=== PATIENT | male | born 1970 | race Caucasian/White ===

== ENCOUNTER 2017-04-20 14:49 | Emergency (ER) | payer BC ==
[~2017-04-20] VITALS: Ht 177.8 cm; Wt 103.6 kg
[~2017-04-20 14:49] MED LIST: LORTAB5 PO; NAPROSYN500 MG PO; NOVOLIN R U-1001 ML SC; NOVOLOG MIX SC; ZESTRIL40 MG PO
[2017-04-20 16:06] LABS: HEMATOCRIT 47.9 % (39.0-50.0); HEMOGLOBIN 16.4 g/dl (14.0-18.0); IMMATURE GRANULOCYTES 0.6 % (0.0-1.0); MEAN CORPUSCULAR HGB 29.4 pG CALC (26.0-32.0); MEAN CORPUSCULAR HGB CONC 34.2 g/L CALC (32.0-36.0); NEUT# 5.76 thou/uL (1.82-7.42); RED BLOOD COUNT 5.57 mill/uL (4.70-6.10); RED CELL DISTRI WIDTH 12.6 % (11.5-15.5)
[2017-04-20 16:17] LABS: ALBUMIN 4.6 g/dL (3.2-5.0); ALKALINE PHOSPHATASE 90 u/l (38-126); AMYLASE 58 u/l (30-110); ANION GAP 18 (6-22 (CALC)); BILIRUBIN, TOTAL 1.1 mg/dL (0.0-1.4); BUN 16 mg/dL (9-20); BUN/CREATININE RATIO 16 (12-20 (CALC)); CALCIUM 9.5 mg/dL (8.4-10.2); CARBON DIOXIDE 26 mmol/l (22-30); CHLORIDE 98 mmol/l (95-108); GFR > 60 ML/MIN (>=60 (CALC)); GFR FOR AFR.AMER. > 60 ML/MIN (>=60 (CALC)); GLUCOSE 325 mg/dL (75-110); LIPASE 40 u/l (23-300); POTASSIUM 4.3 mmol/l (3.5-5.1); SGOT/AST 34 u/l (17-59); SGPT/ALT 63 u/l (21-72); SODIUM 138 mmol/l (137-146)
[2017-04-20 16:29] LABS: MYOGLOBIN 163 ng/mL (0 - 121)
[2017-04-20 17:16] LABS: INFLUENZA A NONE DETECTED (NONE DETECT)
[2017-04-20 17:17] LABS: INFLUENZA B NONE DETECTED (NONE DETECT)
[2017-04-20] MEDS ORDERED: BACTRIM DS1 TAB PO (17:24)
[2017-04-20] MEDS ORDERED: ZOFRAN ODT4 MG PO (17:24)
[2017-04-20 17:31] VITALS: BP 156/83
== END 2017-04-20 17:49 | disposition home or self-care (01) | DRG 392 ==
LOC: ED 14:49
PROVIDERS: Emergency Medicine
DX: R10.33 Periumbilical pain (principal); B34.9 Viral infection, unspecified; R19.7 Diarrhea, unspecified; R11.10 Vomiting, unspecified; R50.9 Fever, unspecified

== ENCOUNTER 2018-02-06 07:35 | Emergency (ER) | payer OTHER, BC ==
[~2018-02-06] VITALS: Ht 177.8 cm; Wt 106.4 kg
[~2018-02-06 07:35] MED LIST changes: +BACTRIM DS1 TAB PO; +ZOFRAN ODT4 MG PO
[2018-02-06] MEDS ORDERED: ATORVASTATIN CA80 MG PO (07:52)
[2018-02-06] MEDS ORDERED: NAPROXEN250 MG PO (07:53)
[2018-02-06] MEDS ORDERED: LEXAPRO10 MG PO (07:53)
[2018-02-06] MEDS ORDERED: TYLENOL 500MG TAB PO (07:54)
[2018-02-06] MEDS ORDERED: TORADOL PO (08:36)
[2018-02-06] MEDS ORDERED: FLEXERIL PO (08:46)
[2018-02-06 08:56] VITALS: BP 169/105
== END 2018-02-06 08:56 | disposition home or self-care (01) | DRG 563 ==
LOC: ED 07:35
DX: S46.911A Strain of unspecified muscle, fascia and tendon at shoulder and upper arm level, right arm, initial encounter (principal); E11.9 Type 2 diabetes mellitus without complications; I10 Essential (primary) hypertension; F41.0 Panic disorder [episodic paroxysmal anxiety]; W17.89XA Other fall from one level to another, initial encounter; Y93.89 Activity, other specified; Y92.89 Other specified places as the place of occurrence of the external cause; Y99.0 Civilian activity done for income or pay

== ENCOUNTER 2020-01-20 19:19 | Emergency (ER) | payer BC ==
[~2020-01-20] VITALS: Ht 177.8 cm; Wt 111.4 kg
[~2020-01-20 19:19] MED LIST changes: +ATORVASTATIN CA80 MG PO; +FLEXERIL PO; +LEXAPRO10 MG PO; +NAPROXEN250 MG PO; +TORADOL PO; +TYLENOL 500MG TAB PO
[2020-01-20 19:38] VITALS: BP 150/76
[2020-01-20] MEDS ORDERED: GABAPENTIN100 MG PO (19:49)
[2020-01-20] MEDS ORDERED: NORVASC5 M1 PO (19:50)
[2020-01-20] MEDS ORDERED: ZOLOFT50 MG PO (19:50)
[2020-01-20] MEDS ORDERED: JARDIANCE10 MG PO (19:51)
[2020-01-20] MEDS ORDERED: MELOXICAM7.5 MG PO (19:52)
[2020-01-20] MEDS ORDERED: NOVOLOG100 UNIT/M SC (19:53)
== END 2020-01-20 20:05 | disposition home or self-care (01) | DRG 605 ==
LOC: ED 19:19
DX: S61.011A Laceration without foreign body of right thumb without damage to nail, initial encounter (principal); I10 Essential (primary) hypertension; E11.9 Type 2 diabetes mellitus without complications; W27.4XXA Contact with kitchen utensil, initial encounter; Y93.G3 Activity, cooking and baking; Y92.000 Kitchen of unspecified non-institutional (private) residence as the place of occurrence of the external cause; Z79.4 Long term (current) use of insulin